=== PATIENT | female | born 1965 | race Caucasian/White ===

== ENCOUNTER 2022-08-22 23:25 | Emergency (ER) | payer BC ==
[~2022-08-22] VITALS: Ht 160 cm; Wt 63.5 kg
[2022-08-22 23:33] VITALS: BP 171/91
[2022-08-23] MEDS ORDERED: CEPH500 PO (02:05)
== END 2022-08-23 02:21 | disposition home or self-care (01) ==
LOC: ER 23:25
DX: S80.852A Superficial foreign body, left lower leg, initial encounter (principal); W45.8XXA Other foreign body or object entering through skin, initial encounter; Z88.0 Allergy status to penicillin
CPT/HCPCS: 10120; 73610; 99283-25; A9270